=== PATIENT | male | born 1995 ===

== ENCOUNTER 2020-04-25 16:10 | Inpatient (IN) | payer MEDICAID ==
[~2020-04-25] VITALS: Ht 177.8 cm; Wt 132.1 kg
[2020-04-25] MEDS ORDERED: LORazepam 1MG TABLET PO PRN (17:00)
[2020-04-25] MEDS ORDERED: POLYETHYLENE GLYCOL 17 GM PACKET PO PRN (17:00)
[2020-04-25] MEDS ORDERED: BISACODYL 10 MG SUPP PR PRN (17:00)
[2020-04-25 18:34] VITALS: BP 131/88
[2020-04-25] MEDS ORDERED: BENZ2AMP4 PO (18:46)
[2020-04-25] MEDS ORDERED: PALI9TAB PO (18:46)
[2020-04-25] MEDS ORDERED: TRAZ-175 PO (18:46)
[2020-04-25] MEDS ORDERED: FLU VACC QS2020-21(6MOS UP)/PF 60MCG/0.5 ML SYR IM-VACC ONE (19:00)
[2020-04-25 19:23] VITALS: BP 153/97
[2020-04-25] MEDS: LORazepam 1MG TABLET PO SCH (20:40)
[2020-04-25 22:37] LABS: MICROSCOPIC NOT IND
[2020-04-26] MEDS: LORazepam 1MG TABLET PO SCH ×4 (03:57→20:04)
[2020-04-26 05:44] LABS: CHOL/HDL RATIO 3.2; FREE T4 (FREE THYROXINE) 1.25 ng/dL (0.76-1.46); LDL/HDL RATIO 1.7 (0.5-3.0)
[2020-04-26 07:33] VITALS: BP 137/86
[2020-04-26] MEDS: FOLIC ACID 1 MG TABLET PO SCH (08:22)
[2020-04-26] MEDS: THIAMINE 100MG TABLET PO SCH (08:22)
[2020-04-26 19:36] VITALS: BP 125/85
[2020-04-26] MEDS ORDERED: ACETAMINOPHEN 325 MG TABLET PO PRN (20:00)
[2020-04-26] MEDS: TRAZODONE 100MG TABLET PO SCH (20:04)
[2020-04-26] MEDS: BENZTROPINE 1 MG TABLET PO SCH (20:04)
[2020-04-27] MEDS: LORazepam 1MG TABLET PO SCH ×4 (03:12→20:29)
[2020-04-27 07:10] VITALS: BP 142/94
[2020-04-27] MEDS: MULTIVITAMIN 1 TABLET PO SCH (08:32)
[2020-04-27] MEDS: CHOLECALCIFEROL 1,000 UNIT TABLET PO SCH (08:32)
[2020-04-27] MEDS: THIAMINE 100MG TABLET PO SCH (08:32)
[2020-04-27] MEDS: PALIPERIDONE 6 MG TAB.ER.24 PO SCH (08:32)
[2020-04-27] MEDS: FOLIC ACID 1 MG TABLET PO SCH (08:32)
[2020-04-27 19:54] VITALS: BP 144/72
[2020-04-27] MEDS: TRAZODONE 100MG TABLET PO SCH (20:29)
[2020-04-27] MEDS: BENZTROPINE 1 MG TABLET PO SCH (20:29)
[2020-04-28] MEDS: LORazepam 1MG TABLET PO SCH ×3 (03:53→15:11)
[2020-04-28 07:05] VITALS: BP 139/90
[2020-04-28] MEDS: THIAMINE 100MG TABLET PO SCH (08:44)
[2020-04-28] MEDS: PALIPERIDONE 6 MG TAB.ER.24 PO SCH (08:45)
[2020-04-28] MEDS: ACAMPROSATE 333 MG TABLET.DR PO SCH ×3 (08:45→20:00)
[2020-04-28] MEDS: FOLIC ACID 1 MG TABLET PO SCH (08:45)
[2020-04-28] MEDS: MULTIVITAMIN 1 TABLET PO SCH (08:45)
[2020-04-28] MEDS: CHOLECALCIFEROL 1,000 UNIT TABLET PO SCH (08:45)
[2020-04-28 19:31] VITALS: BP 131/78
[2020-04-28] MEDS: TRAZODONE 100MG TABLET PO SCH (20:00)
[2020-04-28] MEDS: BENZTROPINE 1 MG TABLET PO SCH (20:00)
[2020-04-29 07:05] VITALS: BP 149/92
[2020-04-29] MEDS: PALIPERIDONE 6 MG TAB.ER.24 PO SCH (09:19)
[2020-04-29] MEDS: FOLIC ACID 1 MG TABLET PO SCH (09:20)
[2020-04-29] MEDS: ACAMPROSATE 333 MG TABLET.DR PO SCH ×3 (09:20→20:12)
[2020-04-29] MEDS: CHOLECALCIFEROL 1,000 UNIT TABLET PO SCH (09:20)
[2020-04-29] MEDS: THIAMINE 100MG TABLET PO SCH (09:20)
[2020-04-29] MEDS: MULTIVITAMIN 1 TABLET PO SCH (09:20)
[2020-04-29] MEDS ORDERED: ACAM333T7 PO (11:59)
[2020-04-29] MEDS ORDERED: PALI6TAB5 PO (11:59)
[2020-04-29] MEDS ORDERED: TRAZ-175 PO (11:59)
[2020-04-29] MEDS ORDERED: BENZ1TAB61 PO (11:59)
[2020-04-29] MEDS ORDERED: Multivitamin PO (11:59)
[2020-04-29] MEDS ORDERED: CHOL10003 PO (11:59)
[2020-04-29 19:32] VITALS: BP 132/84
[2020-04-29] MEDS: TRAZODONE 100MG TABLET PO SCH (20:12)
[2020-04-29] MEDS: BENZTROPINE 1 MG TABLET PO SCH (20:12)
[2020-04-30 08:01] VITALS: BP 143/92
[2020-04-30] MEDS: FOLIC ACID 1 MG TABLET PO SCH (09:07)
[2020-04-30] MEDS: ACAMPROSATE 333 MG TABLET.DR PO SCH (09:07)
[2020-04-30] MEDS: MULTIVITAMIN 1 TABLET PO SCH (09:07)
[2020-04-30] MEDS: PALIPERIDONE 6 MG TAB.ER.24 PO SCH (09:07)
[2020-04-30] MEDS: CHOLECALCIFEROL 1,000 UNIT TABLET PO SCH (09:07)
[2020-04-30] MEDS: THIAMINE 100MG TABLET PO SCH (09:07)
== END 2020-04-30 13:00 | disposition home or self-care (01) | DRG 750 ==
LOC: 3E 18:12
PROVIDERS: ADMIT Psychiatry & Neurology Psychosomatic Medicine; ATTEND Psychiatry & Neurology Psychosomatic Medicine
DX: F25.0 Schizoaffective disorder, bipolar type (principal); G47.00 Insomnia, unspecified; F12.90 Cannabis use, unspecified, uncomplicated; F10.20 Alcohol dependence, uncomplicated; E66.9 Obesity, unspecified; Z79.899 Other long term (current) drug therapy; Z68.41 Body mass index [BMI] 40.0-44.9, adult
CPT/HCPCS: 36415; 71045; 80061; 81003; 82140; 84439; 84443; 90686; 93005

== ENCOUNTER 2020-10-12 15:02 | Emergency (ER) | payer MEDICAID ==
[~2020-10-12] VITALS: Ht 177.8 cm; Wt 140.0 kg
[~2020-10-12 15:02] MED LIST: ACAM333T7 PO; BENZ1TAB61 PO; BENZ2AMP4 PO; CHOL10003 PO; Multivitamin PO; PALI6TAB5 PO; PALI9TAB PO; TRAZ-175 PO
--- NOTE | 2020-10-12 15:40 | NUR ---
PT PRESENTS "I THINK I'M HAVING A STROKE AND LOCK JAW". PT HAS SLURRED SPEECH AND STATES ITS DUE TO HIS JAW FEELING LOCKED AND SO HE CANNOT TALK NORMALLY. STARTED ABOUT 3 HRS AGO AND PT STATES HES NEVER EXPERIENCED ANYTHING LIKE THIS BEFORE. AT FIRST SYMPTOMS WENT AWAY BUT NOWE THEY'VE RETURNED AND AREN'T GOING AWAY. UPON INTIAL ASSESSMENT PT IS STANDING IN ROOM POINTING TO HIS FACE AND VERY ANXIOUS ABOUT JAW. STATES HE WAS FEELING "WEAK ALL OVER EARLIER AND MY HEART DIDN'T FEEL RIGHT". FINANCIAL AID MANAGER SHOWED HR 144. PT PLACED ON FINANCIAL AID MANAGER AND EKG REQUESTED. HR NOW 132. MEDICAL STUDENT AT BEDSIDE FOR EVALUATION.
[2020-10-12] MEDS ORDERED: DIAZEPAM 5 MG TABLET ONE (16:23)
[2020-10-12] MEDS: DIAZEPAM 5 MG TABLET PO ONE ×2 (16:26→16:30)
[2020-10-12] MEDS ORDERED: DIPHENHYDRAMINE 50 MG/ML, 1ML IM ONE (16:30)
[2020-10-12] MEDS ORDERED: DIPHENHYDRAMINE 50 MG/ML, 1ML ONE (16:35)
--- NOTE | 2020-10-12 16:41 | NUR ---
DR BOSTON ORDERS TO GIVE BENADRYL FIRST AND WAIT ON VALIUM AT THIS TIME. WILL REASSES
[2020-10-12 16:52] LABS: ALANINE AMINOTRANSFERASE 68 U/L (12-78); ALBUMIN 3.8 g/dL (3.4-5.0); ANION GAP 9 mmol/L (5-15); CALCIUM 9.4 mg/dL (8.5-10.1); CHLORIDE 108 mmol/L (98-107); CREATININE 0.82 mg/dL (0.7-1.3)
[2020-10-12 16:54] LABS: ALKALINE PHOSPHATASE 90 U/L (45-117); BILIRUBIN,TOTAL 0.3 mg/dL (0.2-1.0); TOTAL PROTEIN 8.2 g/dL (6.4-8.2)
--- NOTE | 2020-10-12 17:19 | NUR ---
STATES HE IS FEELING BETTER AFTER FISH FILLETER. STILL HAS SOME SLURRED SPEECH. HR NOW 110'S.
[2020-10-12 17:30] VITALS: BP 111/45
== END 2020-10-12 17:48 | disposition home or self-care (01) ==
LOC: ED 17:00
DX: R22.0 Localized swelling, mass and lump, head (principal); T43.595A Adverse effect of other antipsychotics and neuroleptics, initial encounter; R94.31 Abnormal electrocardiogram [ECG] [EKG]; Y92.89 Other specified places as the place of occurrence of the external cause; R00.0 Tachycardia, unspecified; I10 Essential (primary) hypertension
CPT/HCPCS: 36415; 80053; 93005; 96372; 99284; J1200